=== PATIENT | male | born 1990 | race African-American/Black ===

== ENCOUNTER 2017-11-07 15:31 | Inpatient (IN) ==
[2017-11-07] MEDS ORDERED: DEXTROSE 50% SYRINGE 50ml (1 AMP) IVP PRN (16:02)
[2017-11-07] MEDS ORDERED: INSULIN REGULAR, HUMAN 100 UNIT/ML INJECTION IVP ONE (16:02)
[2017-11-07] MEDS ORDERED: INSULIN REGULAR, HUMAN 100 UNIT in NS 100 ML IV PRN (16:02)
[2017-11-07] MEDS ORDERED: ONDANSETRON 4 MG/2 ML INJECTION IVP PRN ×2 (16:08→16:09)
[2017-11-07] MEDS ORDERED: ACETAMINOPHEN 325 MG TABLET PO PRN (16:08)
[2017-11-07] MEDS ORDERED: METOCLOPRAMIDE 10mg/2ml INJECTION IVP PRN (16:08)
[2017-11-07] MEDS ORDERED: PANTOPRAZOLE 40 MG INJECTION IVP ONE (16:10)
[2017-11-07] MEDS ORDERED: CALCIUM CARBONATE Chewable 750mg TABLET PO PRN (16:12)
[2017-11-07] MEDS ORDERED: NS 1,000 ML IV SCH ×4 (16:15→18:45)
[2017-11-07 16:18] VITALS: BMI 25.1
--- NOTE | 2017-11-07 16:38 | History & Physical Report ---
History of Present Illness Date: 11/07/17 Chief complaint: New onset Diabetes HPI: Thaddeus is a pleasant 27 yr old male who was seen today at [facility] medicine clinic by Kartik Coffey this morning. He reported a 25-30 pound weight loss over the past month, accompanied with increased fatigue, weakness and frequent urination. 30s were obtained today at the clinic. Patient was found to have blood sugar over 300, with an A1c of 12.8, TSH is 0.40. The patient was notified by the clinic and directed to [facility] for direct admission under the hospitalist services for further medical evaluation and treatment. Thaddeus is seen on arrival to [facility], accompanied with his girlfriend. He is alert, oriented and pleasant. Reports that today he has been having increased nausea and vomiting as well as epigastric discomfort. Describes a 2 month history of a, weakness, daily headaches, epigastric burning with nausea intermittently. Review of Systems All systems PM: 10-point ROS was reviewed, no additional remarkable complaints except - Constitutional Constitutional: Present: anorexia, fatigue, headache(s), malaise, weight loss - Cardiovascular Cardiovascular: Present: palpitations - Gastrointestinal Gastrointestinal: Present: constipation, dyspepsia, nausea, vomiting - Genitourinary Genitourinary: Present: as per HPI (frequent urination) Past Medical History Medical History: Medical History (Last Updated 11/07/17 @ 16:41 by Jessica Gómez, HR LEADER) Diabetes mellitus, new onset Surgical History: Broken jaw- 18 yo. Knee surgery- 26yo. Tonsillectomy- 2017 Family History: Maternal Grandmother Diabetes Father High blood pressure Mother High blood pressure Thyroid disease 2 cousins- with Type 1 DM Family History: As Above - Social History Smoking status: Never smoker Substance use type: does not use Alcohol intake frequency: a few times a month Housing: house Current occupational status: employed (second officer) Social history: PCP- Kartik HUGHES at [facility] Medications Home Medications Medication Instructions Recorded Confirmed Type No known Home medications [No home 11/07/17 11/07/17 History meds] Allergies Allergy/AdvReac Type Severity Reaction Status Date / Time No Known Allergies Allergy Verified 11/07/17 10:16 Exam Telemetry Rhythm: Sinus Tachycardia Height/Weight/BMI: Height 1.78 m Weight 79.5 kg Body Mass Index 25.1 - Constitutional Present: well nourished, well developed - Routine HEENT Exam Eye: Present: EOMI ENT: Present: mucous membranes dry, dentition normal - Routine Neck Exam Present: supple, full ROM - Routine Respiratory Exam Present: CTA bilaterally. Absent: wheezes - Routine Cardiovascular Exam Present: S1, S2, no murmur, tachycardia (112). Absent: murmur - Routine Abdominal Exam Present: soft, tenderness (lower abdomen), non distended. Absent: normoactive bowel sounds (hypoactive) - Routine Extremities Exam Present: no edema, non tender, full ROM, pulses intact, normal capillary refill - Routine Back/Spine/Pelvis Exam Back/Spine: Present: full ROM - Routine Skin Exam Present: intact, dry, warm - Routine Neurological Exam Present: alert, oriented X3, CN II-XII intact, moving all extremities - Routine Psychiatric Exam Present: normal affect, normal thought process, cooperative Results - Labs CBC & Chem 7: 11/07/17 16:04 Assessment and Plan (1) DKA (diabetic ketoacidoses) Current visit: Yes Status: Acute Assessment and Plan: Impression Diabetic ketoacidosis- Due to presence of glucose greater than 200, ketonuria, anion gap of 30 New onset diabetes-hemoglobin A1c 12.8% Low TSH - 0.40 Unintentionally weight loss Nausea and vomiting Headache Plan Patient to the ICU as a direct admission under the care of Dr. Salamanca Will recheck BMP should to evaluate electrolytes and blood sugar Obtain C-peptide lab on admission to determine if patient has type I or type II diabetes 1 liter NS wide open on admission until labs are back Initiate DKA protocol and insulin drip Protonix 40 milligrams IV given recent GI upset Patient on cardiac telemetry given tachycardia Zofran and Reglan available as needed for nausea Liquid diet, then may advance to carb consistent diet as able Recommend diabetic education Will discuss further orders and plan of care with attending, Dr. Salamanca At time of discharge medical care will return to primary care provider, Moses HUGHSE at [facility] DVT Prophylaxis: SCD's GI Prophylaxis: Protonix Resuscitation Status: Full Code - Physician Narrative Physician: Lorenza Salamanca MD Narrative: Date: 11/07/17 Time: 1730 I have independently evaluated and examined this patient. I reviewed the chart, the patient's history, and the HR LEADER/PA's documented findings as above. We discussed and formulated the assessment and plan as above with additions as below: Thaddeus was seen earlier today to establish care after experiencing weight loss over the past month accompanied by onset of polydipsia for the month and polyuria for the past 2 weeks. He has not noted visual changes other than squinting somewhat. He's had nausea with an isolated episode of emesis and only minor abdominal discomfort as described. He denies increased appetite but symptoms have occurred in conjunction with moderately severe dyspepsia/reflux. Patient acknowledges having some lightheadedness-primarily in the morning. On evaluation by Mr. Grace this morning he was found to have elevated blood sugar and A1C as noted, +3 ketones in his urine, sodium 147, bicarbonate 12, and anion gap 30. He was referred to the hospital for management of new onset diabetes mellitus with DKA. Patient is alert, speech is fluent, he is moderately tachycardic on arrival Slender male; respirations [id number] not appreciated Abdomen soft, nontender, bowel sounds diminished No wounds appreciated on exposed skin surfaces Repeat labs with anion gap 31, bicarbonate 9 DKA; new onset diabetes mellitus- 1 L normal saline being given as a bolus, second liter will be at 500 mL per hour and fluids thereafter will be determined based on repeat Accu-Chek/sick metabolic panel in 2 hours. DKA protocol initiated with insulin bolus and continuous infusion. Repeat electrolytes in 2 hours and thereafter per protocol. Patient is almost certainly a type I diabetic and will require subcutaneous insulin therapy at discharge. 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 Patient has family member with insulin pump and is familiar with the concept of monitoring and insulin administration. Diabetes education; consult Dr. Georges (for Friday)-anticipate patient will require 2-3 inpatient days minimum for stabilization of presenting metabolic abnormalities. Discussed with Kartik HUGHES; outpatient records reviewed; telemetry reviewed by myself-sinus tachycardia. Hospital Course Summary Disclaimer: The visit summary below is not to be considered part of the above Progress Note. Hospital Course: Impression Diabetic ketoacidosis- Due to presence of glucose greater than 200, ketonuria, anion gap of 30 New onset diabetes-hemoglobin A1c 12.8% Low TSH - 0.40 Unintentionally weight loss Nausea and vomiting Plan Patient to the ICU as a direct admission under the care of Dr. Salamanca Will recheck BMP should to evaluate electrolytes and blood sugar Obtain C-peptide lab on admission to determine if patient has type I or type II diabetes 1 liter NS wide open on admission until labs are back Initiate DKA protocol and insulin drip Protonix 40 milligrams IV bid given recent GI upset Patient on cardiac telemetry given tachycardia Zofran and Reglan available as needed for nausea Liquid diet, then may advance to carb consistent diet as able Recommend diabetic education; anticipate consultation with Dr. Georges Friday. Will discuss further orders and plan of care with attending, Dr. Salamanca At time of discharge medical care will return to primary care provider, Moses HUGHES at [facility]
[2017-11-07] MEDS ORDERED: MORPHINE SULFATE 4mg INJECTION IVP PRN (16:40)
[2017-11-07] MEDS ORDERED: Oxycodone/Acetaminophen 5/325 1 TAB PO PRN (16:41)
[2017-11-07] MEDS: PANTOPRAZOLE 40 MG INJECTION IVP SCH (16:59)
[2017-11-07] MEDS: POTASSIUM CHLORIDE INJ 20 MEQ, POTASSIUM PHOSPHATE (mEq) 20 MEQ in D5NS 1,000 ML IV SCH (19:42)
[2017-11-08] MEDS: PANTOPRAZOLE 40 MG INJECTION IVP SCH (00:38)
[2017-11-08] MEDS: POTASSIUM CHLORIDE INJ 20 MEQ, POTASSIUM PHOSPHATE (mEq) 20 MEQ in D5NS 1,000 ML IV SCH (02:56)
[2017-11-08] MEDS ORDERED: DEXTROSE 50% SYRINGE 50ml (1 AMP) IVP PRN (08:00)
[2017-11-08] MEDS ORDERED: GLUCOSE ORAL GEL 40% 37.5gm PO PRN (08:00)
--- NOTE | 2017-11-08 08:50 | Progress Note ---
- Date 11/08/17 Subjective: Feeling much better today, slept okay, wanting to eat this morning. Agrees to follow up with endocrine; has several family members with DM so this is not completely new to him. No abdominal pain, fevers, chills, dyspnea. Urinating without difficulty. Objective Vital signs: Temperature 97.7 F 11/08/17 04:00 Pulse Rate 77 11/08/17 05:00 Respiratory Rate 13 11/08/17 05:00 Blood Pressure 154/82 H 11/08/17 05:00 Pulse Oximetry 96 11/08/17 05:00 Rhythm: Normal Sinus Rhythm Height/Weight/BMI: Height 1.78 m Weight 79.5 kg Body Mass Index 25.1 - Constitutional Present: no acute distress, well nourished, well developed - Routine HEENT Exam Head: Present: normocephalic, atraumatic Eye: Present: EOMI, PERRL, periorbital swelling. Absent: conjunctival icterus ENT: Present: mucous membranes moist, oropharynx clear - Routine Respiratory Exam Present: CTA bilaterally. Absent: rales, rhonchi, wheezes - Routine Cardiovascular Exam Present: RRR, no murmur - Routine Abdominal Exam Present: soft, non distended, non tender - Routine Extremities Exam Present: no edema, pulses intact, normal capillary refill - Routine Skin Exam Present: dry, warm. Absent: jaundice, rash - Routine Neurological Exam Present: alert, oriented X3, normal speech - Routine Psychiatric Exam Present: normal affect, normal thought process Results - Labs CBC & Chem 7: 11/08/17 08:02 Labs: Outpatient labs reviewed as able; A1C > 12% C peptide ordered here and pending Assessment and Plan Assessment and Plan: Impression Diabetic ketoacidosis- Due to presence of glucose greater than 200, ketonuria, anion gap of 30 --> improving with supportive care, AG now closed, on dextrose for IVF and glucose stable New onset diabetes-hemoglobin A1C 12.8% Low TSH - 0.40; ? sick euthyroid, plans to f/u with endocrine outpatient Unintentional weight loss, presumably due to DM +/- hyperthyroidism Nausea and vomiting, resolved with treatment of DKA Headache, resolved with IVF support Plan Discontinue IVF, insulin gtt this AM and start low dose basal insulin with lantus 5 units this AM Correction scale aspart and AC/HS accuchecks, monitor insulin needs to determine scheduled mealtime insulin Allow carb controlled diet today Add phosphorus to blood in lab from this morning Obtain C-peptide lab on admission to determine if patient has type I or type II diabetes (pending, will follow) Stop IV protonix, will continue po daily protonix today but unlikely to need at DC Continue ICU care this morning while transitioning to basal/bolus regimen; if doing well will transfer out this afternoon Zofran available as needed for nausea Recommend diabetic education and outpatient f/u with Dr. Tucker; consult placed Renal panel, Mg, CBC in AM for surveillance At time of discharge medical care will return to primary care provider, Moses HUGHES at [facility] DVT Prophylaxis: SCD's GI Prophylaxis: Protonix Resuscitation Status: Full Code - Physician Narrative Narrative: Date: 11/08/17 Time: 0847 Hospital Course Summary Disclaimer: The visit summary below is not to be considered part of the above Progress Note. Hospital Course: Impression Diabetic ketoacidosis- Due to presence of glucose greater than 200, ketonuria, anion gap of 30 New onset diabetes-hemoglobin A1c 12.8% Low TSH - 0.40 Unintentionally weight loss Nausea and vomiting Plan Patient to the ICU as a direct admission under the care of Dr. Salamanca Will recheck BMP should to evaluate electrolytes and blood sugar Obtain C-peptide lab on admission to determine if patient has type I or type II diabetes 1 liter NS wide open on admission until labs are back Initiate DKA protocol and insulin drip Protonix 40 milligrams IV bid given recent GI upset Patient on cardiac telemetry given tachycardia Zofran and Reglan available as needed for nausea Liquid diet, then may advance to carb consistent diet as able Recommend diabetic education; anticipate consultation with Dr. Georges Friday. Will discuss further orders and plan of care with attending, Dr. Salamanca At time of discharge medical care will return to primary care provider, Moses HUGHES at [facility] 11/08/17 Discontinue IVF, insulin gtt this AM and start low dose basal insulin with lantus 5 units this AM Correction scale aspart and AC/HS accuchecks, monitor insulin needs to determine scheduled mealtime insulin Allow carb controlled diet today Add phosphorus to blood in lab from this morning Obtain C-peptide lab on admission to determine if patient has type I or type II diabetes (pending, will follow) Stop IV protonix, will continue po daily protonix today but unlikely to need at DC Continue ICU care this morning while transitioning to basal/bolus regimen; if doing well will transfer out this afternoon Zofran available as needed for nausea Recommend diabetic education and outpatient f/u with Dr. Tucker; consult placed Renal panel, Mg, CBC in AM for surveillance
[2017-11-08] MEDS ORDERED: INSULIN GLARGINE 100unit/ml INJECTION SQ SCH (09:00)
[2017-11-08] MEDS: INSULIN ASPART 100unit/ml INJECTION SQ PRN ×3 (12:12→21:22)
[2017-11-08] MEDS: INSULIN ASPART 100unit/ml INJECTION SQ SCH (17:32)
[2017-11-09] MEDS ORDERED: POTASSIUM CHLORIDE PREMIX 10 MEQ/100 ML BAG IV ONE (05:31)
[2017-11-09] MEDS: INSULIN ASPART 100unit/ml INJECTION SQ PRN ×2 (06:02→11:56)
[2017-11-09] MEDS ORDERED: PANTOPRAZOLE 40 MG TABLET PO SCH (06:30)
[2017-11-09] MEDS ORDERED: LIDOCAINE 1% INJ 10 MG, POTASSIUM CHLORIDE INJ 10 MEQ in NS 100 ML IV SCH ×2 (07:00)
[2017-11-09] MEDS: INSULIN ASPART 100unit/ml INJECTION SQ SCH ×2 (08:42→11:56)
[2017-11-09] MEDS ORDERED: LISINOPRIL 10 MG TABLET PO SCH (09:00)
[2017-11-09] MEDS ORDERED: INSULIN GLARGINE 100unit/ml INJECTION SQ SCH (09:00)
[2017-11-09 10:58] VITALS: BP 130/72; PULSE 91; RESP 18; TEMP 97.7; O2SAT 98
--- NOTE | 2017-11-09 11:31 | Discharge Summary ---
Discharge Information Date of admission: 11/07/17 15:31 Anticipated date of discharge: 11/09/17 Attending Physician: MD Esperanza Alexandra MD Primary care physician: RITU Barillas Consults: 11/07/17 Accounting Teacher Consult [Inpatient Diabetic Consult] [CONS] Routine Diabetic Diagnosis: Other Diabetic Training: Monitoring Diabetes Nutritional Management Disease Process Comment: New onset DM 11/08/17 08:00 Outpt Clinic Diabetic Consult [CONS] Routine Consulting Provider: Marcio Georges Reason For Exam: New DM diagnosis Diabetic Diagnosis: E10.9 Type 1 DM w/o comp - Discharge Diagnosis (1) DM type 1 (diabetes mellitus, type 1) Status: Acute (2) Hypertension associated with diabetes Status: Acute (3) Hypokalemia Status: Acute (4) Sinus tachycardia Status: Acute (5) DKA (diabetic ketoacidoses) Status: Acute DM1, new diagnosis DKA requiring ICU care Hypertension Persistent sinus tachycardia Hypokalemia - Laboratory Labs: 11/09/17 03:50 11/09/17 03:50 History of Present Illness HPI: Thaddeus is a pleasant 27 yr old male who was seen today at [facility] medicine clinic by Kartik Coffey this morning. He reported a 25-30 pound weight loss over the past month, accompanied with increased fatigue, weakness and frequent urination. 30s were obtained today at the clinic. Patient was found to have blood sugar over 300, with an A1c of 12.8, TSH is 0.40. The patient was notified by the clinic and directed to [facility] for direct admission under the hospitalist services for further medical evaluation and treatment. Thaddeus is seen on arrival to [facility], accompanied with his girlfriend. He is alert, oriented and pleasant. Reports that today he has been having increased nausea and vomiting as well as epigastric discomfort. Describes a 2 month history of a, weakness, daily headaches, epigastric burning with nausea intermittently. Objective Vital signs: Temperature 97.7 F 11/09/17 10:57 Pulse Rate 91 11/09/17 10:57 Respiratory Rate 18 11/09/17 10:57 Blood Pressure 130/72 11/09/17 10:57 Pulse Oximetry 98 11/09/17 10:57 Rhythm: Normal Sinus Rhythm Height/Weight/BMI: Height 1.78 m Weight 86.5 kg Body Mass Index 25.1 - Constitutional Present: no acute distress, well nourished, cooperative - Routine HEENT Exam Head: Present: normocephalic Eye: Present: EOMI, PERRL. Absent: conjunctival icterus ENT: Present: mucous membranes moist, oropharynx clear - Routine Respiratory Exam Present: CTA bilaterally. Absent: rales, wheezes - Routine Cardiovascular Exam Present: RRR. Absent: murmur - Routine Abdominal Exam Present: soft, non distended, non tender - Routine Extremities Exam Present: no edema, non tender - Routine Skin Exam Present: dry, warm. Absent: rash - Routine Neurological Exam Present: alert, oriented X3, normal speech - Routine Psychiatric Exam Present: normal affect, normal thought process Hospital Course This is a general summary of the patient's hospital course. For more details refer to the complete medical record. Hospital course: Impression Diabetic ketoacidosis- Due to presence of glucose greater than 200, ketonuria, anion gap of 30 New onset diabetes-hemoglobin A1c 12.8% Low TSH - 0.40 Unintentionally weight loss Nausea and vomiting Plan (at admit 11/07/17) Patient to the ICU as a direct admission under the care of Dr. Salamanca Will recheck BMP should to evaluate electrolytes and blood sugar Obtain C-peptide lab on admission to determine if patient has type I or type II diabetes 1 liter NS wide open on admission until labs are back Initiate DKA protocol and insulin drip Protonix 40 milligrams IV bid given recent GI upset Patient on cardiac telemetry given tachycardia Zofran and Reglan available as needed for nausea Liquid diet, then may advance to carb consistent diet as able Recommend diabetic education; anticipate consultation with Dr. Georges Friday. Will discuss further orders and plan of care with attending, Dr. Salamanca At time of discharge medical care will return to primary care provider, Moses HUGHES at [facility] 11/08/17 Discontinue IVF, insulin gtt this AM and start low dose basal insulin with lantus 5 units this AM Correction scale aspart and AC/HS accuchecks, monitor insulin needs to determine scheduled mealtime insulin Allow carb controlled diet today Add phosphorus to blood in lab from this morning Obtain C-peptide lab on admission to determine if patient has type I or type II diabetes (pending, will follow) Stop IV protonix, will continue po daily protonix today but unlikely to need at DC Continue ICU care this morning while transitioning to basal/bolus regimen; if doing well will transfer out this afternoon Zofran available as needed for nausea Recommend diabetic education and outpatient f/u with Dr. Tucker; consult placed Renal panel, Mg, CBC in AM for surveillance 11/09/17 Mr. Abreu is feeling well today; blood sugars have improved with scheduled basal bolus insulin (lantus 10 units and aspart 3 units with meals + correction dosing). Tachycardia resolved with metoprolol; BP is still a little high, discussed starting lisinopril for renal protection and prevention of proteinuria in addition to HTN. He very much would like to go home today. He is planning to see the DM educator tomorrow and has good family support at home ; he has multiple diabetic family members so is familiar with insulin to some extent. Discussed with case management, nursing staff. Dr. Georges was contacted and he will have DM education tomorrow and see him within 2 weeks. The patient is agreeable to f/u tomorrow for further education. Printouts were given, discussed use of glucose tabs, flex pens, glucometer and testing strips. Rx sent to the pharmacy for all meds and testing supplies; paper Rx provided for glucometer. Time spent with patient: greater than 35 minutes Resuscitation Status: Full Code Discharge Plan - Discharge Disposition Discharge Date: 11/09/17 Disposition: 01 Discharged Home, Self-Care *Condition: Stable Reason For Visit (Visit label in EMR): new onset DKA - Discharge Medications *Discharge Medications: New Lisinopril [Prinivil] 10 mg PO DAILY 90 Days #90 tab Metoprolol Tartrate [Lopressor] 25 mg PO BIDWM 30 Days #60 tab Dextrose [Dex4 Glucose Bits] 1 gm PO [id number] PRN 30 Days #1 box PRN Reason: Prn Orders Lancets [Fingerstix] 1 each [facility] 30 Days #1 box Pen Needle, Diabetic, Safety [Novofine Autocover] 1 each [facility] 30 Days #1 box Insulin Aspart [Novolog Flexpen] 3 unit SQ TIDWM 30 Days #1 insuln.pen Insulin Detemir [Levemir Flextouch] 10 unit SQ DAILY 30 Days #1 insuln.pen Blood Sugar Diagnostic [Glucose Test Strip] 1 each [facility]CHS 30 Days #1 box - Discharge Packet/Instructions *Diet: Carbohydrate controlled, low sugar diet *Activity: As tolerated; no specific restrictions; be aware that strenous activity can drop your blood sugar *Pain Management/Treatment: N/A *Wound Care: N/A Additional Instructions: - Follow-up with Dr. Georges's office tomorrow regarding diabetic education; we have left them a message and they should be contacting you in the morning. You will see Dr. Georges (endocrinology) within 2 weeks. - Monitor for signs of low blood sugar (dizziness, nausea, weakness, tremor) and check sugar if you have any of these symptoms *Expected Signs/Symptoms: None; monitor for signs of low blood sugar as above *Notify Physician if: you have severe low blood sugars, low blood pressures, fevers. *During Business Hours Contact: your primary care clinic at [phone] with questions or concerns. *After Business Hours Contact: the [facility] switchboard for the on- call physician or go to the nearest ER for evaluation. *Pending Lab/Results: Follow up w/your PCP (and maintenance electrician.) - Referrals/Follow Up *Referrals/Follow Up: Kartik Grace PA [Physician Hoisting Laborer] - 1 Week Marcio Georges MD [Physician] - 1 Day (--> see the DM educator on Friday and f/ u with Dr. Georges within 2 weeks. ) - Patient Handouts Patient Handouts: Diabetic Ketoacidosis (DC), Diabetic Ketoacidosis (GEN), Foot Care for People with Diabetes (DC), Hypoglycemia in a Person with Diabetes (DC), Type 2 Diabetes in Adults (DC), Diabetes and Your Skin (DC) - Dismissal Complete Discharge Instructions are:: Complete Physician Narrative - Narrative Attestation Narrative: Date: 11/09/17 Time: [id number]
== END 2017-11-09 12:40 | disposition home or self-care (01) | DRG 639 ==
LOC: CCU 15:31 → INTOOBSV 15:31 → OBSVTOIN 15:31 → MED 11-08 15:20
PROVIDERS: ADMIT Internal Medicine; ATTEND Internal Medicine